=== PATIENT | female | born 1995 | race Caucasian/White ===

== ENCOUNTER 2018-08-21 07:20 | Inpatient (IN) | payer MEDICAID ==
[~2018-08-21] VITALS: Ht 175.3 cm; Wt 63.5 kg
[2018-08-21] MEDS ORDERED: LORAZEPAM 1MG TABLET PO ONE (09:30)
[2018-08-21 10:14] LABS: BASOPHILS % 1.1 % (0.0-2.0); EOSINOPHILS % 0.6 % (0.0-5.0); HEMATOCRIT. 41.5 % (36.0-48.0); HEMOGLOBIN. 13.9 g/dL (12.0-16.0); LYMPHOCYTES % 32.2 % (20.0-50.0); MEAN CORPUSCULAR HEMOGLOBIN 29.8 pg (28.0-32.0); MEAN CORPUSCULAR VOLUME 88.7 fL (81.0-99.0); MEAN PLATELET VOLUME 10.1 fl (7.4-10.4); MONOCYTES % 7.5 % (2.0-8.0); NEUTROPHILS % 58.6 % (40.0-76.0); PLATELET 180 x1000/uL (130-400); RED BLOOD CELL COUNT 4.68 mill/uL (4.2-5.4); RED CELL DISTRIBUTION WIDTH 13.9 % (11.6-14.6)
[2018-08-21 10:21] LABS: CHLORIDE 106 mEq/L (98-107)
[2018-08-21 10:59] LABS: CREATINE KINASE 11109 IU/L (26-192)
[2018-08-21] MEDS ORDERED: SODIUM CHLORIDE 0.9% 1,000 ML IV ONE ×2 (12:00→13:15)
[2018-08-21 12:21] LABS: *AMPHETAMINES SCREEN URINE NEGATIVE (NEGATIVE); *BARBITURATES SCREEN URINE NEGATIVE (NEGATIVE); *BENZODIAZEPINES SCREEN URINE NEGATIVE (NEGATIVE); *COCAINE SCREEN URINE NEGATIVE (NEGATIVE)
[2018-08-21 12:22] LABS: METHADONE URINE SCREEN NEGATIVE (NEGATIVE); OPIATES URINE SCREEN NEGATIVE (NEGATIVE); PHENCYCLIDINE URINE SCREEN NEGATIVE (NEGATIVE)
[2018-08-21 12:31] LABS: CANNABINOID URINE SCREEN PRESUMTIVE POSITIVE (NEGATIVE)
[2018-08-21] MEDS ORDERED: LORAZEPAM 2MG/ML CPJ IV PRN (15:15)
[2018-08-21] MEDS ORDERED: ACETAMINOPHEN 325MG TABLET PO PRN (15:15)
[2018-08-21 16:03] LABS: HEPATITIS B SURFACE ANTIGEN NEGATIVE
[2018-08-21 16:33] LABS: HEPATITIS A AB IGM NEGATIVE (NEGATIVE)
[2018-08-21] MEDS ORDERED: HYDROCODONE/ACETAMINOPHEN 5/325MG TABLET PO PRN (17:00)
[2018-08-21] MEDS: SODIUM CHLORIDE 0.45% 1,000 ML IV SCH ×2 (17:37→20:57)
[2018-08-21 18:50] LABS: HDL CHOLESTEROL 55 mg/dL (40-59)
[2018-08-21 18:52] LABS: LDL CHOLESTEROL 60 mg/dL (5-100)
[2018-08-21 18:56] LABS: CREATINE KINASE MB FRACTION 15.2 ng/mL (0.5-3.6)
[2018-08-21 19:22] LABS: CREATINE KINASE 9269 IU/L (26-192)
[2018-08-21 20:20] VITALS: BP 109/73
[2018-08-21] MEDS ORDERED: SERT25TA PO (21:01)
[2018-08-22] VITALS: BP 103/79
[2018-08-22 04:22] VITALS: BP 109/60
[2018-08-22] MEDS: SODIUM CHLORIDE 0.45% 1,000 ML IV SCH ×2 (05:49→05:54)
[2018-08-22 07:28] LABS: BASOPHILS % 0.7 % (0.0-2.0); EOSINOPHILS % 1.8 % (0.0-5.0); HEMATOCRIT. 37.3 % (36.0-48.0); HEMOGLOBIN. 12.7 g/dL (12.0-16.0); LYMPHOCYTES % 35.3 % (20.0-50.0); MEAN CORPUSCULAR HEMOGLOBIN 30.3 pg (28.0-32.0); MEAN CORPUSCULAR VOLUME 88.9 fL (81.0-99.0); MONOCYTES % 9.1 % (2.0-8.0); NEUTROPHILS % 53.1 % (40.0-76.0); PLATELET 154 x1000/uL (130-400); RED BLOOD CELL COUNT 4.19 mill/uL (4.2-5.4); RED CELL DISTRIBUTION WIDTH 13.9 % (11.6-14.6)
[2018-08-22 08:00] VITALS: BP 109/71
[2018-08-22 08:18] LABS: CHLORIDE 109 mEq/L (98-107)
[2018-08-22 08:52] LABS: CREATINE KINASE 5431 IU/L (26-192)
[2018-08-22 12:00] VITALS: BP 118/79
[2018-08-22 14:22] VITALS: BP 118/79
== END 2018-08-22 14:52 | disposition home or self-care (01) | DRG 351 ==
LOC: ER 11:22 → 7WST 12:31 → EDBEDREQTM 13:06 → EDBEDREQ 13:06 → ENRESERV 16:27
PROVIDERS: ADMIT Internal Medicine; ATTEND Internal Medicine
DX: M62.82 Rhabdomyolysis (principal); F12.90 Cannabis use, unspecified, uncomplicated; F41.9 Anxiety disorder, unspecified; R74.0 Nonspecific elevation of levels of transaminase and lactic acid dehydrogenase [LDH]; F32.9 Major depressive disorder, single episode, unspecified; K80.20 Calculus of gallbladder without cholecystitis without obstruction; G43.909 Migraine, unspecified, not intractable, without status migrainosus; Z90.49 Acquired absence of other specified parts of digestive tract; Z88.8 Allergy status to other drugs, medicaments and biological substances
CPT/HCPCS: 36415; 71045; 76705; 80048; 80061; 80305; 80307; 80329; 82550; 82553; 84443; 84484; 86705; 86709; 86803; 87340; 93005; 96360; 99285; J2060; J7030